=== PATIENT | male | born 1960 | race Caucasian/White ===

== ENCOUNTER 2017-08-28 14:58 | Emergency (ER) | payer OTHER ==
[2017-08-30 10:11] LABS: POC CA IONIZED 3.3 mg/dL (4.5-5.3); POC CREATININE 1.2 mg/dL (0.6-1.3); POC HEMOGLOBIN 13.6 g/dL (14.0-18.0); POC POTASSIUM 2.9 mmol/L (3.5-5.1)
== END 2017-08-28 20:50 ==
LOC: ER 14:58
PROVIDERS: Emergency Medicine
DX: I46.9 Cardiac arrest, cause unspecified (principal)